=== PATIENT | female | born 1970 | race Caucasian/White ===

== ENCOUNTER 2017-04-15 05:18 | Emergency (ER) | payer OTHER ==
--- NOTE | 2017-04-15 06:33 | DIAGNOSTIC IMAGING REPORT ---
PROCEDURE: CT ABDOMEN/PELVIS W/O CONTRAST INDICATION: FLANK PAIN TECHNIQUE: Noncontrast axial images with sagittal and coronal reformations. COMPARISON: None. FINDINGS: ABDOMEN: There is mild to moderate left hydronephrosis and hydroureter secondary to a 3 mm calculus located at the ureteral vesicle junction. There is a 0.5 mm nonobstructing calculus in the lower pole left kidney. Right kidney and ureter are normal. There is a 4.5 cm low density area in the lateral right lobe of the liver. Liver is otherwise normal. Cholecystectomy. Spleen, pancreas, and aorta are normal. Bowel pattern is normal, including appendix. Mild to moderate dextroscoliosis of the thoracolumbar spine with moderate degenerative changes. PELVIS: Right ovary is enlarged secondary to at 6.3 cm cyst. Left ovary is prominent secondary to a 3.3 cm cyst. Uterus is normal. No evidence of free fluid. IMPRESSION: 1. Mild to moderate left hydronephrosis secondary to a 3 mm calculus located at the ureteral vesicle junction. 2. There is a 0.5 mm nonobstructing calculus in the lower pole left kidney. 3. There is a 4.5 cm low density area in the right lateral liver. Findings suggests a benign hemangioma. Ultrasound is recommended to further evaluate ( after the patient acute illness). 4. There are bilateral ovarian cysts (right 6.3 cm, left 3.3 cm). While there is nothing to suggest soft tissue component, follow-up pelvic ultrasound (4 weeks) is recommended to confirm resolution). 5. Status post cholecystectomy. 6. Mild to moderate dextroscoliosis of the thoracolumbar spine with moderate degenerative changes. 7. discussed with Dr. Oconnell. All CT scans at this facility use dose modulation, iterative reconstruction, and/or weight-based dosing when appropriate to reduce radiation dose to as low as reasonably achievable.
--- NOTE | 2017-04-15 06:37 | ED ORDER SUMMARY ---
..... Patient: PERI SOTO OrderSheet [facility] VisitID: [id number] [address] [place] [address] 46y, F Registration Date/Time: 04/15/2017 ORDER SHEET Weight: 77.5 kg (stated) Allergies: No Known Drug Allergy GENERAL ORDERS: Amylase Urgent (05:38 04/15/2017 PHutchinson DO) (5:40 CBradburn R.N.) Lipase Urgent (05:04/15/2017 PHchinson DO) (5:40 CBradburn R.N.) Ethyl Alcohol Urgent (05:04/15/2017 PHutchinson DO) (5:40 CBradburn R.N.) Lactate, Serum Urgent (05:04/15/2017 PH DO) (5:40 CBradburn R.N.) PT with INR Urgent (05:04/15/2017 PHchinson DO) (5:41 CBradburn R.N.) UA-Culture if indicated Urgent (05:38 04/15/2017 PHson DO) (Ack 5:56 RKaruga) (6:29 CBradburn R.N.) Cardiac Panel Stat (05:38 04/15/2017 PHson DO) (5:41 CBradburn R.N.) BNP Urgent (05:04/15/2017 PHchinson DO) (5:41 CBradburn R.N.) NPO (05:38 04/15/2017 PHchinson DO) (5:39 HSoule) CT Abd/Pel wo Cont Urgent (05:46 04/15/2017 PHchinson DO) (5:53 CBradburn R.N.) MEDICATION ORDERS: Potassium Chloride PO 40 meq (NOW) (06:32 04/15/2017 PHchinson DO) (6:42 CBradburn R.N.) IV FLUIDS: IV NS : initial bolus 500 mL (1000 mL/hr), then 250 mL/hr for X2 (NOW) (05:37 04/15/2017 PHchinson DO) (Ack 5:39 HSoule) (5:45 HSoule) Zofran IV 4 mg (NOW) (05:37 [facility] (Ack 5:39 HSoule) (5:45 HSoule) Dilaudid IV 1 mg (may repeat to total of 2 mg IV in 0.5 mg incriments) (05:46 [facility]15/2017 [facility] (5:50 Steve Ruth) ORDER SHEET NOTES: [Electronically signed by Amrita Hoover R.N. (07:20 04/15/2017)] [Electronically signed by Duy Oconnell DO (11:34 04/16/2017)] [Electronically locked/signed by Amrita Hoover R.N. (07:20 04/15/2017)]
--- NOTE | 2017-04-15 06:37 | ED CLINICAL REPORT ---
Clinical Report - Physicians/Mid Levels [facility] [address] [place] [address] 04/15/2017 5:32 Patient: PERI SOTO Time Seen: 05:35. Arrived- By ambulance. Historian- patient and EMS personnel. HISTORY OF PRESENT ILLNESS Chief Complaint: ABDOMINAL PAIN and FLANK PAIN. At its maximum, severity described as severe. When seen in the E.D., severity described as severe. Modifying factors- (took a bath which did not help the pain). Not worsened by anything. Not relieved by anything. This started today about 1 1/2 hour ago and is still present. It was gradual in onset and has been constant. It is described as "pain" and sharp and it is described as located in the left abdomen and left lower quadrant and the left flank and radiating to the right upper quadrant of the abdomen. The patient has had nausea. No vomiting or diarrhea. Similar symptoms previously: None. Recent medical care: The patient was seen recently by a health care provider. REVIEW OF SYSTEMS No constipation, black stools, hematemesis, difficulty with urination or pain with urination. No urinary frequency, bloody stools, fever, headache or sore throat. No chest pain, difficulty breathing or cough. Denies current . The patient has had back pain. All systems otherwise negative, except as recorded above. PAST HISTORY Primary physician ([facility]) Chronic pelvic pain - scheduled for hysterectomy (at [facility]) . Ovarian cyst. Surgeries: Cholecystectomy. SOCIAL HISTORY Never smoker. No alcohol use or drug use. ADDITIONAL NOTES The nursing notes have been reviewed. PHYSICAL EXAM Vital Signs: 04/15/2017 05:35 BP: 137/96. HR: 70. RR: 18. O2 saturation: 100%. Temp: 97.4 F. Pain level now: 10/10. Appearance: Alert. Oriented X3. Patient in severe distress. Eyes: Eyes normal inspection. No scleral icterus or pale conjunctivae. ENT: Pharynx normal. No pharyngeal erythema or tonsillar exudate. The mucous membranes are not dry. Neck: Normal inspection. Neck supple. CVS: Normal heart rate and rhythm. Heart sounds normal. Pulses normal. Respiratory: No respiratory distress. Breath sounds normal. Abdomen: Soft and nontender. No mass. Back: Normal inspection. No CVA tenderness. Skin: Skin warm and dry. Normal skin color. Normal skin turgor. Extremities: Extremities exhibit normal ROM. No lower extremity edema. Neuro: Oriented X 3. LABS, X-RAYS, AND EKG Laboratory Tests: UA-Culture if indicated: (ANGEL: 04/15/2017 06:27) ( [facility] 04/15/2017 06:54) Final results Test Result Flag Units (Reference) URINE COLOR YELLOW URINE APPEARANCE CLEAR URINE GLUCOSE NEGATIVE (NEGATIVE) URINE BILIRUBIN NEGATIVE (NEGATIVE) URINE KETONE NEGATIVE (NEGATIVE) URINE SPECIFIC GRAVITY >= 1.030 (1.010-1.030) URINE PH 6.0 (5.0-8.0) URINE PROTEIN NEGATIVE (NEGATIVE) URINE UROBILINOGEN 0.2 EU/dL (0.2-1.0) URINE NITRITE NEGATIVE (NEGATIVE) URINE BLOOD 3+ (NEGATIVE) URINE LEUK ESTERASE NEGATIVE (NEGATIVE) URINE RBC 5-10 rbc/hpf (0-1) URINE WBC 0-1 wbc/hpf (0-1) URINE EPITHELIAL CELLS 1-3 EPI/hpf (0-5) URINE BACTERIA NONE SEEN (NONE SEEN) URINE COMMENT CULT NOT INDICATED URINE CULTURES ARE SET-UP BASED ON THE FOLLOWING CRITERIA:POSITIVE NITRITEPOSITIVE LEUKOCYTE ESTERASEGREATER THAN 10 WHITE BLOOD CELLSMODERATE (2+) OR GREATER BACTERIA CBC w Diff: (ANGEL: 04/15/2017 05:50) ( [facility] 04/15/2017 05:54) Final results Test Result Flag Units (Reference) WHITE BLOOD COUNT 9.8 K/uL (4.5-11.5) RED BLOOD COUNT 4.23 M/uL (4.00-5.20) HEMOGLOBIN 11.9 L gm/dL (12.0-16.0) HEMATOCRIT 36.3 % (36.0-46.0) MEAN CELL VOLUME 86 fL (80-100) MEAN CORPUSCULAR HGB 28 pg (26-34) MEAN CORPUSCULAR HGB CONC 33 g/dL (31-37) RED CELL DISTRIBUTION WIDTH 14.0 % (11.6-14.8) PLATELET COUNT 366 K/uL (150-400) LYMPH % 32.3 % (25-40) MONO % 2.8 L % (3-14) GRANULOCYTE % 64.9 (53-90) PT with INR: (ANGEL: 04/15/2017 05:50) ( [facility] 04/15/2017 05:55) Final results Test Result Flag Units (Reference) INR 0.9 (0.8-1.2) Low Intensity Therapy: INR 1.5-2.0 PT range 18.5-23.1Mod.Intensity Therapy: INR 2.0-3.0 PT range 23.1-31.5High Intensity Therapy: INR 2.5-3.5 PT range 27.4-35.5High Intensity Therapy 2: INR 3.0-4.0 PT range 31.5-39.3 BNP: (ANGEL: 04/15/2017 05:50) ( [facility] 04/15/2017 06:01) Final results Test Result Flag Units (Reference) B-TYPE NATRIURETIC PEPTIDE < 5.0 L pg/ml (5-100) Lactate, Serum: (ANGEL: 04/15/2017 06:20) ( [facility] 04/15/2017 07:03) Final results Test Result Flag Units (Reference) LACTIC ACID 1.6 mmol/L (0.4-2.0) Lipase: (ANGEL: 04/15/2017 05:50) ( [facility] 04/15/2017 05:58) Final results Test Result Flag Units (Reference) LIPASE 107 U/L (73-393) AMYLASE 32 U/L (25-115) ETHYL ALCOHOL <3 L mg/dL (3-10) CHEM 13 PANEL: (ANGEL: 04/15/2017 05:50) ( [facility] 04/15/2017 06:27) Final results Test Result Flag Units (Reference) GLUCOSE 157 H mg/dL (70-110) BUN 16 mg/dL (7-18) CREATININE 0.8 mg/dL (0.6-1.3) Estimated GFR >60 mL/min Estimated GFR- >60 mL/min Note: Persistent reduction over 3 months in eGFR<60 mL/min/1.73 m2 defines CKD. Patients with eGFR values>=60 mL/min/1.73 m2 may also have CKD if evidence ofpersistent proteinuria. Additional information may be foundat www.kidney.org. SODIUM 139 mmol/L (136-145) POTASSIUM 2.7 *L mmol/L (3.5-5.1) CRITICAL RESULTS CALLEDCalled to [place] 04/15/17 0627Were 2 patient identifiers used? YWas the result read back? Y CHLORIDE 103 mmol/L (98-107) CARBON DIOXIDE 26 mmol/L (21-32) CALCIUM 8.6 mg/dL (8.5-10.1) TOTAL PROTEIN 7.7 g/dL (6.4-8.2) ALBUMIN 3.7 g/dL (3.3-5.0) BILIRUBIN, TOTAL 0.3 mg/dL (0.0-1.0) ALKALINE PHOSPHATASE 75 U/L (46-116) AST (SGOT) 13 L U/L (15-37) ALT (SGPT) 20 U/L (12-78) MAGNESIUM 1.7 L mg/dL (1.8-2.4) CPK 54 U/L (24-260) TROPONIN I <0.05 ng/mL (0.00-1.5) TROPONIN REFERENCE RANGE:<0.1 NEGATIVE0.1-1.5 INDETERMINANT>1.5 POSITIVE . Pulse Oximetry: 04/15/2017 05:35 O2 saturation: 100%. (FIO2 - room air). Interpretation: normal. PROGRESS AND PROCEDURES Course of Care: Normal Saline 1 liter IVPB given. Zofran 4 mg IVP given. Dilaudid 1 mg + 0.5 mg IVP given. 07:04 04/15/17. Patient is stable. Physical exam findings are improved. Symptoms much better. Patient/family counseled. Old ED records reviewed. Disposition: Discharged. Condition: stable and improved. CLINICAL IMPRESSION Ureterolithiasis (single stone) in the left ureter with renal colic and hydronephrosis. No urinary tract infection. Multiple right and left ovarian cysts. Hypokalemia Possible liver hemangioma vs other problem- requires confirmatory ultrasound in the next several weeks. INSTRUCTIONS Drink plenty of fluids. No alcohol until released. Warnings: Further evaluation is necessary in order to obtain test results and conduct further tests (You will need to have a lesion on your liver checked by ultrasound (or other method) - to be arranged by your doctor. You will need the ovarian cystic lesions evaluated - by pathology or other imaging if they are not removed during your upcoming hysterectomy). It is very important to follow up with a physician. SEDATIVE MEDICATION: You were given sedative medication during your visit. Do not drive or operate dangerous machinery. CONTROLLED SUBSTANCE WARNINGS. GENERAL WARNINGS: Return or contact your physician immediately if your condition worsens or changes unexpectedly, if not improving as expected, or if other problems arise. Prescription Medications: Hydrocodone/APAP 5mg / 325mg: take 1-2 orally every 8 hours as needed for pain. Dispense ten (10). No refill. Zofran (orally disintegrating tablets) 4 mg: take 1-2 orally every 8 hours as needed for nausea and vomiting. Dispense five (5). No refill. Substitution is permissible. Ibuprofen 600mg tablets: take 1 tablet orally every 8 hours as needed for pain. Dispense thirty (30). No refills. Potassium Chloride 20 mEq: take 1 orally every 12 hours - Dispense ten (10) No refills. Follow-up: Follow up with your doctor tomorrow. (Electronically signed by Duy Oconnell DO 04/16/2017 11:34)
--- NOTE | 2017-04-15 06:37 | ED CLINICAL REPORT ---
Clinical Report - Physicians/Mid Levels [facility] [address] [place] [address] 04/15/2017 5:32 Patient: PERI SOTO Time Seen: 05:35. Arrived- By ambulance. Historian- patient and EMS personnel. HISTORY OF PRESENT ILLNESS Chief Complaint: ABDOMINAL PAIN and FLANK PAIN. At its maximum, severity described as severe. When seen in the E.D., severity described as severe. Modifying factors- (took a bath which did not help the pain). Not worsened by anything. Not relieved by anything. This started today about 1 1/2 hour ago and is still present. It was gradual in onset and has been constant. It is described as "pain" and sharp and it is described as located in the left abdomen and left lower quadrant and the left flank and radiating to the right upper quadrant of the abdomen. The patient has had nausea. No vomiting or diarrhea. Similar symptoms previously: None. Recent medical care: The patient was seen recently by a health care provider. REVIEW OF SYSTEMS No constipation, black stools, hematemesis, difficulty with urination or pain with urination. No urinary frequency, bloody stools, fever, headache or sore throat. No chest pain, difficulty breathing or cough. Denies current . The patient has had back pain. All systems otherwise negative, except as recorded above. PAST HISTORY Primary physician ([facility]) Chronic pelvic pain - scheduled for hysterectomy (at [facility]) . Ovarian cyst. Surgeries: Cholecystectomy. SOCIAL HISTORY Never smoker. No alcohol use or drug use. ADDITIONAL NOTES The nursing notes have been reviewed. PHYSICAL EXAM Vital Signs: 04/15/2017 05:35 BP: 137/96. HR: 70. RR: 18. O2 saturation: 100%. Temp: 97.4 F. Pain level now: 10/10. Appearance: Alert. Oriented X3. Patient in severe distress. Eyes: Eyes normal inspection. No scleral icterus or pale conjunctivae. ENT: Pharynx normal. No pharyngeal erythema or tonsillar exudate. The mucous membranes are not dry. Neck: Normal inspection. Neck supple. CVS: Normal heart rate and rhythm. Heart sounds normal. Pulses normal. Respiratory: No respiratory distress. Breath sounds normal. Abdomen: Soft and nontender. No mass. Back: Normal inspection. No CVA tenderness. Skin: Skin warm and dry. Normal skin color. Normal skin turgor. Extremities: Extremities exhibit normal ROM. No lower extremity edema. Neuro: Oriented X 3. LABS, X-RAYS, AND EKG Laboratory Tests: UA-Culture if indicated: (ANGEL: 04/15/2017 06:27) ( [facility] 04/15/2017 06:54) Final results Test Result Flag Units (Reference) URINE COLOR YELLOW URINE APPEARANCE CLEAR URINE GLUCOSE NEGATIVE (NEGATIVE) URINE BILIRUBIN NEGATIVE (NEGATIVE) URINE KETONE NEGATIVE (NEGATIVE) URINE SPECIFIC GRAVITY >= 1.030 (1.010-1.030) URINE PH 6.0 (5.0-8.0) URINE PROTEIN NEGATIVE (NEGATIVE) URINE UROBILINOGEN 0.2 EU/dL (0.2-1.0) URINE NITRITE NEGATIVE (NEGATIVE) URINE BLOOD 3+ (NEGATIVE) URINE LEUK ESTERASE NEGATIVE (NEGATIVE) URINE RBC 5-10 rbc/hpf (0-1) URINE WBC 0-1 wbc/hpf (0-1) URINE EPITHELIAL CELLS 1-3 EPI/hpf (0-5) URINE BACTERIA NONE SEEN (NONE SEEN) URINE COMMENT CULT NOT INDICATED URINE CULTURES ARE SET-UP BASED ON THE FOLLOWING CRITERIA:POSITIVE NITRITEPOSITIVE LEUKOCYTE ESTERASEGREATER THAN 10 WHITE BLOOD CELLSMODERATE (2+) OR GREATER BACTERIA CBC w Diff: (ANGEL: 04/15/2017 05:50) ( [facility] 04/15/2017 05:54) Final results Test Result Flag Units (Reference) WHITE BLOOD COUNT 9.8 K/uL (4.5-11.5) RED BLOOD COUNT 4.23 M/uL (4.00-5.20) HEMOGLOBIN 11.9 L gm/dL (12.0-16.0) HEMATOCRIT 36.3 % (36.0-46.0) MEAN CELL VOLUME 86 fL (80-100) MEAN CORPUSCULAR HGB 28 pg (26-34) MEAN CORPUSCULAR HGB CONC 33 g/dL (31-37) RED CELL DISTRIBUTION WIDTH 14.0 % (11.6-14.8) PLATELET COUNT 366 K/uL (150-400) LYMPH % 32.3 % (25-40) MONO % 2.8 L % (3-14) GRANULOCYTE % 64.9 (53-90) PT with INR: (ANGEL: 04/15/2017 05:50) ( [facility] 04/15/2017 05:55) Final results Test Result Flag Units (Reference) INR 0.9 (0.8-1.2) Low Intensity Therapy: INR 1.5-2.0 PT range 18.5-23.1Mod.Intensity Therapy: INR 2.0-3.0 PT range 23.1-31.5High Intensity Therapy: INR 2.5-3.5 PT range 27.4-35.5High Intensity Therapy 2: INR 3.0-4.0 PT range 31.5-39.3 BNP: (ANGEL: 04/15/2017 05:50) ( [facility] 04/15/2017 06:01) Final results Test Result Flag Units (Reference) B-TYPE NATRIURETIC PEPTIDE < 5.0 L pg/ml (5-100) Lactate, Serum: (ANGEL: 04/15/2017 06:20) ( [facility] 04/15/2017 07:03) Final results Test Result Flag Units (Reference) LACTIC ACID 1.6 mmol/L (0.4-2.0) Lipase: (ANGEL: 04/15/2017 05:50) ( [facility] 04/15/2017 05:58) Final results Test Result Flag Units (Reference) LIPASE 107 U/L (73-393) AMYLASE 32 U/L (25-115) ETHYL ALCOHOL <3 L mg/dL (3-10) CHEM 13 PANEL: (ANGEL: 04/15/2017 05:50) ( [facility] 04/15/2017 06:27) Final results Test Result Flag Units (Reference) GLUCOSE 157 H mg/dL (70-110) BUN 16 mg/dL (7-18) CREATININE 0.8 mg/dL (0.6-1.3) Estimated GFR >60 mL/min Estimated GFR- >60 mL/min Note: Persistent reduction over 3 months in eGFR<60 mL/min/1.73 m2 defines CKD. Patients with eGFR values>=60 mL/min/1.73 m2 may also have CKD if evidence ofpersistent proteinuria. Additional information may be foundat www.kidney.org. SODIUM 139 mmol/L (136-145) POTASSIUM 2.7 *L mmol/L (3.5-5.1) CRITICAL RESULTS CALLEDCalled to [place] 04/15/17 0627Were 2 patient identifiers used? YWas the result read back? Y CHLORIDE 103 mmol/L (98-107) CARBON DIOXIDE 26 mmol/L (21-32) CALCIUM 8.6 mg/dL (8.5-10.1) TOTAL PROTEIN 7.7 g/dL (6.4-8.2) ALBUMIN 3.7 g/dL (3.3-5.0) BILIRUBIN, TOTAL 0.3 mg/dL (0.0-1.0) ALKALINE PHOSPHATASE 75 U/L (46-116) AST (SGOT) 13 L U/L (15-37) ALT (SGPT) 20 U/L (12-78) MAGNESIUM 1.7 L mg/dL (1.8-2.4) CPK 54 U/L (24-260) TROPONIN I <0.05 ng/mL (0.00-1.5) TROPONIN REFERENCE RANGE:<0.1 NEGATIVE0.1-1.5 INDETERMINANT>1.5 POSITIVE . Pulse Oximetry: 04/15/2017 05:35 O2 saturation: 100%. (FIO2 - room air). Interpretation: normal. PROGRESS AND PROCEDURES Course of Care: Normal Saline 1 liter IVPB given. Zofran 4 mg IVP given. Dilaudid 1 mg + 0.5 mg IVP given. 07:04 04/15/17. Patient is stable. Physical exam findings are improved. Symptoms much better. Patient/family counseled. Old ED records reviewed. Disposition: Discharged. Condition: stable and improved. CLINICAL IMPRESSION Ureterolithiasis (single stone) in the left ureter with renal colic and hydronephrosis. No urinary tract infection. Multiple right and left ovarian cysts. Hypokalemia Possible liver hemangioma vs other problem- requires confirmatory ultrasound in the next several weeks. INSTRUCTIONS Drink plenty of fluids. No alcohol until released. Warnings: Further evaluation is necessary in order to obtain test results and conduct further tests (You will need to have a lesion on your liver checked by ultrasound (or other method) - to be arranged by your doctor. You will need the ovarian cystic lesions evaluated - by pathology or other imaging if they are not removed during your upcoming hysterectomy). It is very important to follow up with a physician. SEDATIVE MEDICATION: You were given sedative medication during your visit. Do not drive or operate dangerous machinery. CONTROLLED SUBSTANCE WARNINGS. GENERAL WARNINGS: Return or contact your physician immediately if your condition worsens or changes unexpectedly, if not improving as expected, or if other problems arise. Prescription Medications: Hydrocodone/APAP 5mg / 325mg: take 1-2 orally every 8 hours as needed for pain. Dispense ten (10). No refill. Zofran (orally disintegrating tablets) 4 mg: take 1-2 orally every 8 hours as needed for nausea and vomiting. Dispense five (5). No refill. Substitution is permissible. Ibuprofen 600mg tablets: take 1 tablet orally every 8 hours as needed for pain. Dispense thirty (30). No refills. Potassium Chloride 20 mEq: take 1 orally every 12 hours - Dispense ten (10) No refills. Follow-up: Follow up with your doctor tomorrow. (Electronically signed by Duy Oconnell DO 04/16/2017 11:34)
--- NOTE | 2017-04-15 06:37 | ED NURSING NOTES ---
Clinical Report - Nurses [facility] [address] [place] [address] 04/15/2017 5:32 Patient: PERI SOTO TRIAGE Triage time 05:32. Acuity: LEVEL 3. Chief Complaint: ABDOMINAL PAIN. --05:39 Amrita Hoover R.N. 05:35 04/15/17. BP: 137/96 taken on the left arm, while lying. HR: 70 (regular and normal rate). RR: 18 (regular and unlabored). O2 saturation: 100% on room air. Temp: 97.4 F (oral). Pain level now: 08/07. --05:39 Amrita Hoover R.N. Weight: 77.5 kg stated. Height/Length: 67 inches Per Patient. BMI: 26.8. --05:37 Amrita Hoover R.N. Medications None. --05:37 Amrita Hoover R.N. Allergies No Known Drug Allergy. --05:37 Amrita Hoover R.N. History Arrived by EMS. Historian: patient. Unaccompanied. Primary physician ([facility]). This started just prior to arrival. Onset. (1.5 hours). ( c/o LLQ abd pain started suddenly severe, pt scheduled to have hysterectomy in 2 days at [facility]). PAST MEDICAL HX: Immunizations: up-to-date. Last normal menstrual period- beginning of the month. SOCIAL HX: Never smoker. No alcohol use or drug use. No infectious disease exposure. No known contact with a sick individual. ABUSE ASSESSMENT: No report of abuse. SELF HARM ASSESSMENT: A self harm assessment was performed. The patient answered "no" to the question "Have you recently felt down, depressed, or hopeless?", "Have you noticed less interest or pleasure in doing things?", "Do you have thoughts of harming or killing yourself?", "Are you here because you tried to hurt yourself?", "Have you ever tried to hurt yourself before today?", "Have you recently had thoughts about harming or killing others?" and "Do you have any dangerous items in your possession?". FALL RISK ASSESSMENT: Fall risk assessment completed. No fall risk identified. NUTRITIONAL RISK ASSESSMENT: The nutritional risk assessment revealed no deficiencies. FUNCTIONAL ASSESSMENT: Functional assessment: no impairments noted. LEARNING NEEDS ASSESSMENT: The learning needs assessment revealed no barriers. SKIN INTEGRITY ASSESSMENT: Skin integrity risk assessment completed. No skin integrity risk identified. --05:39 Amrita Hoover R.N. PROBLEMS: Ovarian Cyst. --05:37 Armita Hoover R.N. ADDITIONAL SURGERIES: Cholecystectomy. --05:37 Amrita Hoover R.N. Interventions ID band on patient. --05:39 Amrita Hoover R.N. PHYSICAL ASSESSMENT To room via stretcher. GENERAL / NEURO / PSYCH: Alert. Oriented X 4. Appears in pain and anxious. HEENT: Mucous membranes are pink. RESPIRATORY: Respirations not labored. Breath sounds within normal limits. CVS: Normal sinus rhythm noted. Capillary refill less than 2 seconds. GI / : Abdomen soft. Abdominal tenderness in the left lower quadrant. Guarding present in the left lower quadrant. Bowel sounds within normal limits. No abdominal distention or mass present in the abdominal region. No nausea noted. No emesis noted. No urethral discharge or vaginal discharge. SKIN: Skin is warm and dry. --05:40 Amrita Hoover R.N. NURSING PROGRESS NOTES Patient gowned. Two patient identifiers checked. Call light placed in reach. Side rails up x 2. Bed placed in lowest position. Brakes of bed on. Patient ready for evaluation- chart flagged. --05:40 Amrita Hoover R.N. 05:45 04/15/2017 Site #1 started via IV in the right antecubital space with an 20g angiocath, with aseptic technique and good blood return; one attempt. Blood drawn: rainbow set. Labeled in the presence of the patient and sent to the lab. Saline lock flushed with 10 mL saline. --05:45 Michela Sheikh 05:45 04/15/2017 Started bag #1 1000 mL IV Fluids IV NS (Saline); at 1000 mL/hr over 30 minute(s) via site #1 via IV pump. Allergies verified and confirmed 5 rights. IV patency established. IV site checked: no pain, redness, or swelling. IV flushed thoroughly pre- and post-medication administration. --05:45 Michela Sheikh 05:45 04/15/2017 Zofran (Ondansetron HCl) IVP 4 mg given over 1 minute(s) via site #1. Allergies verified and confirmed 5 rights. IV patency established. IV site checked: no pain, redness, or swelling. IV flushed thoroughly pre- and post-medication administration. IVP given by RN. --05:45 Aguilar, Michela 05:50 04/15/2017 Dilaudid (HYDROmorphone HCl PF) IVP 1 mg given over 2 minute(s) via site #1. Allergies verified, confirmed 5 rights and sedative warning given to the patient. IV patency established. IV site checked: no pain, redness, or swelling. IV flushed thoroughly pre- and post-medication administration. IVP given by RN. --05:50 Amrita Hoover R.N. Patient transported to CT by stretcher with tech. (05:53). --05:53 Amrita Hoover R.N. Patient returned from CT by stretcher with tech. (06:02). --06:02 Amrita Hoover R.N. 06:12 04/15/2017 Dilaudid (HYDROmorphone HCl PF) IVP 0.5 mg given over 2 minute(s) via site #1. Allergies verified, confirmed 5 rights and sedative warning given to the patient. IV patency established. IV site checked: no pain, redness, or swelling. IV flushed thoroughly pre- and post-medication administration. IVP given by RN. --06:12 Amrita Hoover R.N. 06:05 04/15/17. BP: 148/82 taken on the left arm, while lying. HR: 87 (regular and normal rate). RR: 18 (regular and unlabored). O2 saturation: 98% on room air. Temp: deferred. Pain level now: 5/10. --06:13 Amrita Hoover R.N. Overall patient status is improved- she states feels better. GI / : Bowel sounds within normal limits. SKIN: Skin is warm and dry. Skin color within normal limits. --06:13 Amrita Hoover R.N. GI / : The patient reports abdominal pain located in the LLQ is still present but improving and currently moderate in severity, constant and described as aching. --06:13 Amrita Hoover R.N. Critical value relayed to ED by Lab 06:27. Critical value received by Michela DAUGHERTY. K: 2.7. Critical value read back. Verified lab result. Provider notifed of critical value (Anish). --06:27 Amrita Hoover R.N. 06:08 04/15/2017 Dilaudid IVP Response: pain is improving. Symptoms have improved the patient feels better. (06/07). --06:34 Amrita Hoover R.N. 06:33 04/15/2017 Dilaudid IVP Response: pain is worsening. Symptoms have gotten worse. The patient feels worse. (08/07). --06:35 Amrita Hoover R.N. 06:34 04/15/2017 Dilaudid (HYDROmorphone HCl PF) IVP 0.5 mg given over 2 minute(s) via site #1. Allergies verified, confirmed 5 rights and sedative warning given to the patient. IV patency established. IV site checked: no pain, redness, or swelling. IV flushed thoroughly pre- and post-medication administration. IVP given by RN. --06:34 Amrita Hoover R.N. 06:33. Patient ID band checked for patient name and birthdate: patient confirmed. Instructions provided to collect clean catch urine and patient verbalized understanding. Clean catch urine collected with return of yellow-colored clear urine; sample sent to lab for urinalysis and culture. Specimen labeled in the presence of the patient. ( pt ambulating to BR reports pain worsening now, will medicate again per MD orders. Urine collected and sent to lab). GI / : The patient reports abdominal pain located in the LLQ is still present and worsening and currently severe and constant. --06:37 Amrita Hoover R.N. Call light placed in reach. --06:37 Amrita Hoover R.N. 06:15 04/15/2017 Started bag #1 1000 mL IV Fluids IV NS (Saline); at 250 mL/hr over 2 hour(s) via site #1 via IV pump. Allergies verified and confirmed 5 rights. IV patency established. IV site checked: no pain, redness, or swelling. IV flushed thoroughly pre- and post-medication administration. --06:38 Amrita Hoover R.N. 06:15 04/15/2017 IV Fluids IV NS Discontinued: completed. Total amount infused: 500 mL. IV patency established. IV site checked: no pain, redness, or swelling. IV flushed thoroughly. --06:37 Amrita Hoover R.N. 06:42 04/15/2017 Potassium Chloride (Potassium Chloride ER) PO Tablets 40 meq given. Allergies verified and confirmed 5 rights. --06:42 Amrita Hoover R.N. DISPOSITION / DISCHARGE 07:19 04/15/2017 Site #1 removed upon discharge. Catheter intact. Manual pressure and bandage applied. --07:19 Amrita Hoover R.N. 07:19 04/15/2017 IV Fluids IV NS Discontinued: STOPPED upon discharge. Total amount infused: 750 mL. IV patency established. IV site checked: no pain, redness, or swelling. IV flushed thoroughly. --07:19 Amrita Hoover R.N. Departure time: 719. Condition at departure: improved and stable. No learning barriers present. Discharge instructions provided and reviewed with the patient. Reviewed medication(s) side effects, precautions, dosing and course information. Prescription(s) given to the patient. Patient verbalized understanding. Written instructions provided in Maltese. The patient was discharged home and accompanied by spouse. She left the Emergency Department ambulatory and via private vehicle. Spouse driving. --07:20 Amrita Hoover R.N. Locked/Released at 04/15/2017 7:20 by Amrita Hoover R.N.
--- NOTE | 2017-04-15 06:37 | ED ORDER SUMMARY ---
..... Patient: PERI SOTO OrderSheet [facility] VisitID: [id number] [address] [place] [address] 46y, F Registration Date/Time: 04/15/2017 ORDER SHEET Weight: 77.5 kg (stated) Allergies: No Known Drug Allergy GENERAL ORDERS: Amylase Urgent (05:38 04/15/2017 PHutchinson DO) (5:40 CBradburn R.N.) Lipase Urgent (05:04/15/2017 PHchinson DO) (5:40 CBradburn R.N.) Ethyl Alcohol Urgent (05:04/15/2017 PHutchinson DO) (5:40 CBradburn R.N.) Lactate, Serum Urgent (05:04/15/2017 PH DO) (5:40 CBradburn R.N.) PT with INR Urgent (05:04/15/2017 PHchinson DO) (5:41 CBradburn R.N.) UA-Culture if indicated Urgent (05:38 04/15/2017 PHson DO) (Ack 5:56 RKaruga) (6:29 CBradburn R.N.) Cardiac Panel Stat (05:38 04/15/2017 PHson DO) (5:41 CBradburn R.N.) BNP Urgent (05:04/15/2017 PHchinson DO) (5:41 CBradburn R.N.) NPO (05:38 04/15/2017 PHchinson DO) (5:39 HSoule) CT Abd/Pel wo Cont Urgent (05:46 04/15/2017 PHchinson DO) (5:53 CBradburn R.N.) MEDICATION ORDERS: Potassium Chloride PO 40 meq (NOW) (06:32 04/15/2017 PHchinson DO) (6:42 CBradburn R.N.) IV FLUIDS: IV NS : initial bolus 500 mL (1000 mL/hr), then 250 mL/hr for X2 (NOW) (05:37 04/15/2017 PHchinson DO) (Ack 5:39 HSoule) (5:45 HSoule) Zofran IV 4 mg (NOW) (05:37 [facility]2017 [facility] (Ack 5:39 HSoule) (5:45 HSoule) Dilaudid IV 1 mg (may repeat to total of 2 mg IV in 0.5 mg incriments) (05:46 [facility]/15/2017 [facility] (5:50 Steve Ruth) ORDER SHEET NOTES: [Electronically signed by Amrita Hoover R.N. (07:20 04/15/2017)] [Electronically signed by Duy Oconnell DO (11:34 04/16/2017)] [Electronically locked/signed by Amrita Hoover R.N. (07:20 04/15/2017)]
--- NOTE | 2017-04-16 11:35 | ED MAR SUMMARY ---
..... Medication Administration Record [facility] [address] [place] [address] Patient: PERI SOTO Visit ID: [id number] 46y, F Weight: 77.5 kg Height/Length: 67 in BMI: 26.8 ALLERGIES: No Known Drug Allergy Given 05:45 04/15/2017 Michela Sheikh, Medication Administered: ZOFRAN [IVP] (ONDANSETRON HCL), Dose: 4 mg IVP over 1 minute(s), Site: #1 right AC. Medication Ordered: Zofran IV 4 mg (NOW). Start 05:45 04/15/2017 Michela Sheikh,, Stop 06:15 04/15/2017 Amrita Hoover R.N. Medication Administered: IV NS (SALINE), Dose: IV Fluids over 30 minute(s), Rate: 1000 mL/hr, Dispensed: 1000 mL bag, Site: #1 right AC. Medication Ordered: IV NS : initial bolus 500 mL (1000 mL/hr), then 250 mL/hr for X2 (NOW). Given 05:50 04/15/2017 Amrita Hoover R.N. Medication Administered: DILAUDID [IVP] (HYDROMORPHONE HCL PF), Dose: 1 mg IVP over 2 minute(s), Site: #1 right AC. Medication Ordered: Dilaudid IV 1 mg (may repeat to total of 2 mg IV in 0.5 mg incriments). Given 06:12 04/15/2017 Amrita Hoover R.N. Medication Administered: DILAUDID [IVP] (HYDROMORPHONE HCL PF), Dose: 0.5 mg IVP over 2 minute(s), Site: #1 right AC. Medication Ordered: Dilaudid IV 1 mg (may repeat to total of 2 mg IV in 0.5 mg incriments). Start 06:15 04/15/2017 Amrita Hoover R.N., Stop 07:19 04/15/2017 Amrita Hoover R.N. Medication Administered: IV NS (SALINE), Dose: IV Fluids over 2 hour(s), Rate: 250 mL/hr, Dispensed: 1000 mL bag, Site: #1 right AC. Medication Ordered: IV NS : initial bolus 500 mL (1000 mL/hr), then 250 mL/hr for X2 (NOW). Given 06:34 04/15/2017 Amrita Hoover R.N. Medication Administered: DILAUDID [IVP] (HYDROMORPHONE HCL PF), Dose: 0.5 mg IVP over 2 minute(s), Site: #1 right AC. Medication Ordered: Dilaudid IV 1 mg (may repeat to total of 2 mg IV in 0.5 mg incriments). Given 06:42 04/15/2017 Amirta Hoover R.N. Medication Administered: POTASSIUM CHLORIDE [PO] (POTASSIUM CHLORIDE ER), Dose: 40 meq Tablets PO. Medication Ordered: Potassium Chloride PO 40 meq (NOW).
--- NOTE | 2017-04-16 11:35 | ED MED RECONCILIATION SUMMARY ---
Patient: PERI SOTO Medication Reconciliation Report [facility] VisitID: [id number] [address] [place] [address] 46y, F Registration Date/Time: 04/15/2017 Weight: 77.5 kg Height/Length: 67 in. BMI: 26.8 ALLERGIES: No Known Drug Allergy The patient's Home Medications are listed below: NONE. The source(s) of the original Home Medication information: Not obtained. The following Medications were given to the patient in the Emergency Department: IV NS IV Fluids bolus 0, then 1000 mL/hr, administered: 04/15/2017 5:45:00 AM Zofran [IVP] IVP 4 mg, administered: 04/15/2017 5:45:00 AM Dilaudid [IVP] IVP 1 mg, administered: 04/15/2017 5:50:00 AM Dilaudid [IVP] IVP 0.5 mg, administered: 04/15/2017 6:12:00 AM Dilaudid [IVP] IVP 0.5 mg, administered: 04/15/2017 6:34:00 AM IV NS IV Fluids bolus 0, then 250 mL/hr, administered: 04/15/2017 6:15:00 AM Potassium Chloride [PO] PO 40 meq, administered: 04/15/2017 6:42:00 AM The following Medications were prescribed to the patient: Hydrocodone/APAP 5mg / 325mg: take 1-2 orally every 8 hours as needed for pain. Dispense ten (10). No refill. -- Duy Oconnell DO Zofran (orally disintegrating tablets) 4 mg: take 1-2 orally every 8 hours as needed for nausea and vomiting. Dispense five (5). No refill. Substitution is permissible. -- Duy Oconnell DO Ibuprofen 600mg tablets: take 1 tablet orally every 8 hours as needed for pain. Dispense thirty (30). No refills. -- Duy Oconnell DO Potassium Chloride 20 mEq: take 1 orally every 12 hours - Dispense ten (10) No refills. -- Duy Oconnell DO
--- NOTE | 2017-04-16 11:35 | ED MED RECONCILIATION SUMMARY ---
Patient: PERI SOTO Medication Reconciliation Report [facility] VisitID: [id number] [address] [place] [address] 46y, F Registration Date/Time: 04/15/2017 Weight: 77.5 kg Height/Length: 67 in. BMI: 26.8 ALLERGIES: No Known Drug Allergy The patient's Home Medications are listed below: NONE. The source(s) of the original Home Medication information: Not obtained. The following Medications were given to the patient in the Emergency Department: IV NS IV Fluids bolus 0, then 1000 mL/hr, administered: 04/15/2017 5:45:00 AM Zofran [IVP] IVP 4 mg, administered: 04/15/2017 5:45:00 AM Dilaudid [IVP] IVP 1 mg, administered: 04/15/2017 5:50:00 AM Dilaudid [IVP] IVP 0.5 mg, administered: 04/15/2017 6:12:00 AM Dilaudid [IVP] IVP 0.5 mg, administered: 04/15/2017 6:34:00 AM IV NS IV Fluids bolus 0, then 250 mL/hr, administered: 04/15/2017 6:15:00 AM Potassium Chloride [PO] PO 40 meq, administered: 04/15/2017 6:42:00 AM The following Medications were prescribed to the patient: Hydrocodone/APAP 5mg / 325mg: take 1-2 orally every 8 hours as needed for pain. Dispense ten (10). No refill. -- Duy Oconnell DO Zofran (orally disintegrating tablets) 4 mg: take 1-2 orally every 8 hours as needed for nausea and vomiting. Dispense five (5). No refill. Substitution is permissible. -- Duy Oconnell DO Ibuprofen 600mg tablets: take 1 tablet orally every 8 hours as needed for pain. Dispense thirty (30). No refills. -- Duy Oconnell DO Potassium Chloride 20 mEq: take 1 orally every 12 hours - Dispense ten (10) No refills. -- Duy Oconnell DO
--- NOTE | 2017-04-16 11:35 | ED MAR SUMMARY ---
..... Medication Administration Record [facility] [address] [place] [address] Patient: PERI SOTO Visit ID: [id number] 46y, F Weight: 77.5 kg Height/Length: 67 in BMI: 26.8 ALLERGIES: No Known Drug Allergy Given 05:45 04/15/2017 Michela Sheikh, Medication Administered: ZOFRAN [IVP] (ONDANSETRON HCL), Dose: 4 mg IVP over 1 minute(s), Site: #1 right AC. Medication Ordered: Zofran IV 4 mg (NOW). Start 05:45 04/15/2017 Michela Sheikh,, Stop 06:15 04/15/2017 Amrita Hoover R.N. Medication Administered: IV NS (SALINE), Dose: IV Fluids over 30 minute(s), Rate: 1000 mL/hr, Dispensed: 1000 mL bag, Site: #1 right AC. Medication Ordered: IV NS : initial bolus 500 mL (1000 mL/hr), then 250 mL/hr for X2 (NOW). Given 05:50 04/15/2017 Amrita Hoover R.N. Medication Administered: DILAUDID [IVP] (HYDROMORPHONE HCL PF), Dose: 1 mg IVP over 2 minute(s), Site: #1 right AC. Medication Ordered: Dilaudid IV 1 mg (may repeat to total of 2 mg IV in 0.5 mg incriments). Given 06:12 04/15/2017 Amrita Hoover R.N. Medication Administered: DILAUDID [IVP] (HYDROMORPHONE HCL PF), Dose: 0.5 mg IVP over 2 minute(s), Site: #1 right AC. Medication Ordered: Dilaudid IV 1 mg (may repeat to total of 2 mg IV in 0.5 mg incriments). Start 06:15 04/15/2017 Amrita Hoover R.N., Stop 07:19 04/15/2017 Amrita Hoover R.N. Medication Administered: IV NS (SALINE), Dose: IV Fluids over 2 hour(s), Rate: 250 mL/hr, Dispensed: 1000 mL bag, Site: #1 right AC. Medication Ordered: IV NS : initial bolus 500 mL (1000 mL/hr), then 250 mL/hr for X2 (NOW). Given 06:34 04/15/2017 Amrita Hoover R.N. Medication Administered: DILAUDID [IVP] (HYDROMORPHONE HCL PF), Dose: 0.5 mg IVP over 2 minute(s), Site: #1 right AC. Medication Ordered: Dilaudid IV 1 mg (may repeat to total of 2 mg IV in 0.5 mg incriments). Given 06:42 04/15/2017 Amrita Hoover R.N. Medication Administered: POTASSIUM CHLORIDE [PO] (POTASSIUM CHLORIDE ER), Dose: 40 meq Tablets PO. Medication Ordered: Potassium Chloride PO 40 meq (NOW).
--- NOTE | 2017-04-16 11:35 | ED DISCHARGE INSTRUCTIONS ---
Patient: PERI SOTO General Instructions [facility] VisitID: [id number] [place] [address] 46y, F Registration Date/Time: 04/15/2017 Ureterolithiasis (single stone) in the left ureter with renal colic and hydronephrosis. No urinary tract infection. Multiple right and left ovarian cysts. Hypokalemia Possible liver hemangioma vs other problem- requires confirmatory ultrasound in the next several weeks. INSTRUCTIONS Drink plenty of fluids. No alcohol until released. Warnings: Further evaluation is necessary in order to obtain test results and conduct further tests (You will need to have a lesion on your liver checked by ultrasound (or other method) - to be arranged by your doctor. You will need the ovarian cystic lesions evaluated - by pathology or other imaging if they are not removed during your upcoming hysterectomy). It is very important to follow up with a physician. SEDATIVE MEDICATION: You were given sedative medication during your visit. Do not drive or operate dangerous machinery. CONTROLLED SUBSTANCE WARNINGS. GENERAL WARNINGS: Return or contact your physician immediately if your condition worsens or changes unexpectedly, if not improving as expected, or if other problems arise. Prescription Medications: Hydrocodone/APAP 5mg / 325mg: take 1-2 orally every 8 hours as needed for pain. Dispense ten (10). No refill. Zofran (orally disintegrating tablets) 4 mg: take 1-2 orally every 8 hours as needed for nausea and vomiting. Dispense five (5). No refill. Substitution is permissible. Ibuprofen 600mg tablets: take 1 tablet orally every 8 hours as needed for pain. Dispense thirty (30). No refills. Potassium Chloride 20 mEq: take 1 orally every 12 hours - Dispense ten (10) No refills. Follow-up: Follow up with your doctor tomorrow. ADDITIONAL INFORMATION Kidney Stone (W/ Colic) The sharp cramping pain and nausea/vomiting that you have is due to a small stone which has formed in the kidney and is now passing down a narrow tube (ureter) on its way to your bladder. Once it reaches your bladder, the pain will stop. The stone may pass in your urine stream in one piece. [The size may be 1/16" to 1/4" (1-6mm)]. Or, the stone may also break up into sarah fragments which you may not even notice. Once you have had a kidney stone, you are at risk for developing another one in the future. Home Care: Drink plenty of fluids (at least 8 to 10 glasses of water a day). Most stones will pass on their own, but may take from a few hours to a few days. Sometimes the stone is too large to pass by itself and special methods will have to be used to remove the stone. Each time you urinate, do so in a jar. Pour the urine from the jar through the strainer and into the toilet. Continue doing this until 24 hours after your pain stops. By then, if there was a kidney stone, it should pass from your bladder. Some stones dissolve into sand-like particles and pass right through the strainer. In that case, you wont ever see a stone. Save any stone that you find in the strainer and bring it to your doctor for analysis. It may be possible to prevent certain types of stones from forming. Therefore, it is important to know what kind of stone you have. Try to stay as active as possible since this will help the stone pass. Do not stay in bed unless your pain prevents you from getting up. You may notice a red, pink or brown color to your urine. This is normal while passing a kidney stone. Follow Up with your doctor or return to this facility if the pain lasts more than 48 hours. Get Prompt Medical Attention if any of the following occur: Pain that is not controlled by the medicine given Repeated vomiting or unable to keep down fluids Weakness, dizziness or fainting Fever of 100.4F (38C) or higher, or as directed by your healthcare provider Passage of solid red or brown urine (can't see through it) or urine with lots of blood clots Unable to pass urine for 8 hours and increasing bladder pressure Ovarian Cyst The ovary is a small organ located on each side of the uterus. During each menstrual cycle a tiny egg sac forms in the ovary. If the egg is released but does not occur, this sac usually dissolves. Sometimes, the sac may fill with fluid. It then enlarges into a painful cyst. Usually the cyst will rupture or shrink on its own. In either case, the pain gradually goes away over the next 1-3 days. If the cyst does not shrink or rupture, it may cause continued pain. Home Care: Rest in bed and avoid heavy exertion until you are feeling better. Heat to the lower abdomen usually helps (heating pad or hot packs -- a small towel soaked in hot water). You may use acetaminophen (Tylenol) or ibuprofen (Motrin, Advil) to control pain, unless another pain medicine was prescribed. [NOTE: If you have chronic liver or kidney disease or ever had a stomach ulcer or GI bleeding, talk with your doctor before using these medicines.] Follow Up: See your doctor within the next 2-3 days if your pain doesnt improve. Otherwise, follow up with your doctor after your next period or as directed by our staff. Get Prompt Medical Attention if any of the following occur: Pain worsens or fails to respond to the above measures Fever of 100.4F (38C) or higher, or as directed by your healthcare provider Heavy vaginal bleeding (soaking one pad an hour for three hours) You feel weak or dizzy Fainting Passage of a pink or platt tissue with menstrual bleeding Hypokalemia Hypokalemia means a low level of potassium in the blood. This most often occurs in patients who take diuretics (water pills). It can also occur due to severe vomiting or diarrhea. A mild case usually causes no symptoms. It is only found with blood testing. More severe potassium loss causes generalized weakness, muscle or abdominal cramping, heart palpitations (rapid or irregular heartbeats) and low blood pressure. Home Care: 1) Take any potassium supplements prescribed. 2) Eat foods rich in potassium. The highest amount is found in artichoke, baked potatoes, spinach, cantaloupe, honeydew melon, cod, halibut, salmon, and scallops. White, red, or burgos beans are also very good sources. A modest amount is found in orange juice, bananas, carrots, and tomato juice. 3) Certain types of diuretics (water pills), such as Lasix (furosemide), require that you take potassium supplements for as long as you take the diuretic pills. If you are taking a diuretic, discuss the need for potassium supplements with your doctor. Follow Up with your doctor for a repeat blood test within the next week or as advised by our staff. Get Prompt Medical Attention if any of the following occur: -- Increased weakness -- Feeling dizzy -- Irregular heartbeat, extra beats or very fast heart rate -- Fainting spell Hydrocodone Bitartrate, Acetaminophen Oral tablet What is this medicine? ACETAMINOPHEN; HYDROCODONE (a set a EDNA nadine fen; ki droe JHON done) is a pain reliever. It is used to treat mild to moderate pain. How should I use this medicine? Take this medicine by mouth. Swallow it with a full glass of water. Follow the directions on the prescription label. If the medicine upsets your stomach, take the medicine with food or milk. Do not take more than you are told to take. Talk to your interior decorator regarding the use of this medicine in children. This medicine is not approved for use in children. What side effects may I notice from receiving this medicine? Side effects that you should report to your doctor or health acute care registered nurse as soon as possible: allergic reactions like skin rash, itching or hives, swelling of the face, lips, or tongue breathing problems confusion feeling faint or lightheaded, falls stomach pain yellowing of the eyes or skin Side effects that usually do not require medical attention (report to your doctor or health acute care registered nurse if they continue or are bothersome): nausea, vomiting stomach upset What may interact with this medicine? alcohol antihistamines isoniazid medicines for depression, anxiety, or psychotic disturbances medicines for sleep muscle relaxants naltrexone narcotic medicines (opiates) for pain phenobarbital ritonavir tramadol What if I miss a dose? If you miss a dose, take it as soon as you can. If it is almost time for your next dose, take only that dose. Do not take double or extra doses. Where should I keep my medicine? Keep out of the reach of children. This medicine can be abused. Keep your medicine in a safe place to protect it from theft. Do not share this medicine with anyone. Selling or giving away this medicine is dangerous and against the law. Store at room temperature between 15 and 30 degrees C (59 and 86 degrees F). Protect from light. Keep container tightly closed. Throw away any unused medicine after the expiration date. Discard unused medicine and used packaging carefully. Pets and children can be harmed if they find used or lost packages. What should I tell my health care provider before I take this medicine? They need to know if you have any of these conditions: brain tumor Crohn's disease, inflammatory bowel disease, or ulcerative colitis drink more than 3 alcohol-containing drinks per day drug abuse or addiction head injury heart or circulation problems kidney disease or problems going to the bathroom liver disease lung disease, asthma, or breathing problems an unusual or allergic reaction to acetaminophen, hydrocodone, other opioid analgesics, other medicines, foods, dyes, or preservatives or trying to get breast-feeding What should I watch for while using this medicine? Tell your doctor or health acute care registered nurse if your pain does not go away, if it gets worse, or if you have new or a different type of pain. You may develop tolerance to the medicine. Tolerance means that you will need a higher dose of the medicine for pain relief. Tolerance is normal and is expected if you take the medicine for a long time. Do not suddenly stop taking your medicine because you may develop a severe reaction. Your body becomes used to the medicine. This does NOT mean you are addicted. Addiction is a behavior related to getting and using a drug for a non-medical reason. If you have pain, you have a medical reason to take pain medicine. Your doctor will tell you how much medicine to take. If your doctor wants you to stop the medicine, the dose will be slowly lowered over time to avoid any side effects. You may get drowsy or dizzy when you first start taking the medicine or change doses. Do not drive, use machinery, or do anything that may be dangerous until you know how the medicine affects you. Stand or sit up slowly. There are different types of narcotic medicines (opiates) for pain. If you take more than one type at the same time, you may have more side effects. Give your health care provider a list of all medicines you use. Your doctor will tell you how much medicine to take. Do not take more medicine than directed. Call emergency for help if you have problems breathing. The medicine will cause constipation. Try to have a bowel movement at least every 2 to 3 days. If you do not have a bowel movement for 3 days, call your doctor or health acute care registered nurse. Too much acetaminophen can be very dangerous. Do not take Tylenol (acetaminophen) or medicines that contain acetaminophen with this medicine. Many non-prescription medicines contain acetaminophen. Always read the labels carefully. Ondansetron Oral disintegrating tablet What is this medicine? ONDANSETRON (on JERRY se daniele) is used to treat nausea and vomiting caused by chemotherapy. It is also used to prevent or treat nausea and vomiting after surgery. How should I use this medicine? These tablets are made to dissolve in the mouth. Do not try to push the tablet through the foil backing. With dry hands, peel away the foil backing and gently remove the tablet. Place the tablet in the mouth and allow it to dissolve, then swallow. While you may take these tablets with water, it is not necessary to do so. Talk to your interior decorator regarding the use of this medicine in children. Special care may be needed. What side effects may I notice from receiving this medicine? Side effects that you should report to your doctor or health acute care registered nurse as soon as possible: allergic reactions like skin rash, itching or hives, swelling of the face, lips, or tongue breathing problems dizziness fast or irregular heartbeat feeling faint or lightheaded, falls fever and chills swelling of the hands and feet tightness in the chest Side effects that usually do not require medical attention (report to your doctor or health acute care registered nurse if they continue or are bothersome): constipation or diarrhea headache What may interact with this medicine? Do not take this medicine with any of the following medications: -apomorphine -cisapride -dofetilide -dronedarone -pimozide -thioridazine -ziprasidone This medicine may also interact with the following medications: -carbamazepine -phenytoin -rifampicin -tramadol -other medicines that prolong the QT interval (cause an abnormal heart rhythm) What if I miss a dose? If you miss a dose, take it as soon as you can. If it is almost time for your next dose, take only that dose. Do not take double or extra doses. Where should I keep my medicine? Keep out of the reach of children. Store between 2 and 30 degrees C (36 and 86 degrees F). Throw away any unused medicine after the expiration date. What should I tell my health care provider before I take this medicine? They need to know if you have any of these conditions: heart disease history of irregular heartbeat liver disease low levels of magnesium or potassium in the blood an unusual or allergic reaction to ondansetron, granisetron, other medicines, foods, dyes, or preservatives or trying to get breast-feeding What should I watch for while using this medicine? Check with your doctor or health acute care registered nurse as soon as you can if you have any sign of an allergic reaction. Ibuprofen Oral tablet What is this medicine? IBUPROFEN (eye BYOO proe fen) is a non-steroidal anti-inflammatory drug (NSAID). It is used for dental pain, fever, headaches or migraines, osteoarthritis, rheumatoid arthritis, or painful monthly periods. It can also relieve minor aches and pains caused by a cold, flu, or sore throat. How should I use this medicine? Take this medicine by mouth with a glass of water. Follow the directions on the prescription label. Take this medicine with food if your stomach gets upset. Try to not lie down for at least 10 minutes after you take the medicine. Take your medicine at regular intervals. Do not take your medicine more often than directed. A special MedGuide will be given to you by the pharmacist with each prescription and refill. Be sure to read this information carefully each time. Talk to your interior decorator regarding the use of this medicine in children. Special care may be needed. What side effects may I notice from receiving this medicine? Side effects that you should report to your doctor or health acute care registered nurse as soon as possible: allergic reactions like skin rash, itching or hives, swelling of the face, lips, or tongue black or bloody stools, blood in the urine or in vomit breathing problems changes in vision chest pain general ill feeling or flu-like symptoms nausea or vomiting redness, blistering, peeling or loosening of the skin, including inside the mouth slurred speech or weakness on one side of the body stomach pain unexplained weight gain or swelling unusually weak or tired yellowing of eyes or skin Side effects that usually do not require medical attention (report to your doctor or health acute care registered nurse if they continue or are bothersome): constipation or diarrhea dizziness gas or heartburn stomach upset What may interact with this medicine? Do not take this medicine with any of the following medications: cidofovir ketorolac methotrexate pemetrexed This medicine may also interact with the following medications: alcohol aspirin diuretics lithium other drugs for inflammation like prednisone warfarin What if I miss a dose? If you miss a dose, take it as soon as you can. If it is almost time for your next dose, take only that dose. Do not take double or extra doses. Where should I keep my medicine? Keep out of the reach of children. Store at room temperature between 15 and 30 degrees C (59 and 86 degrees F). Keep container tightly closed. Throw away any unused medicine after the expiration date. What should I tell my health care provider before I take this medicine? They need to know if you have any of these conditions: asthma cigarette smoker drink more than 3 alcohol containing drinks a day heart disease or circulation problems such as heart failure or leg edema (fluid retention) high blood pressure kidney disease liver disease stomach bleeding or ulcers an unusual or allergic reaction to ibuprofen, aspirin, other NSAIDS, other medicines, foods, dyes, or preservatives or trying to get breast-feeding What should I watch for while using this medicine? Tell your doctor or healthcare professional if your symptoms do not start to get better or if they get worse. This medicine does not prevent heart attack or stroke. In fact, this medicine may increase the chance of a heart attack or stroke. The chance may increase with longer use of this medicine and in people who have heart disease. If you take aspirin to prevent heart attack or stroke, talk with your doctor or health acute care registered nurse. Do not take other medicines that contain aspirin, ibuprofen, or naproxen with this medicine. Side effects such as stomach upset, nausea, or ulcers may be more likely to occur. Many medicines available without a prescription should not be taken with this medicine. This medicine can cause ulcers and bleeding in the stomach and intestines at any time during treatment. Ulcers and bleeding can happen without warning symptoms and can cause . To reduce your risk, do not smoke cigarettes or drink alcohol while you are taking this medicine. You may get drowsy or dizzy. Do not drive, use machinery, or do anything that needs mental alertness until you know how this medicine affects you. Do not stand or sit up quickly, especially if you are an older patient. This reduces the risk of dizzy or fainting spells. This medicine can cause you to bleed more easily. Try to avoid damage to your teeth and gums when you brush or floss your teeth. You have been given the following additional information: Kidney Stone W/ Colic Ovarian Cyst Hypokalemia Hydrocodone Bitartrate, Acetaminophen Oral tablet Ondansetron Oral disintegrating tablet Ibuprofen Oral tablet (Electronically signed by Duy Oconnell DO 04/16/2017 11:34)
== END 2017-04-15 07:20 | disposition home or self-care (01) ==
LOC: ED SRH 05:18
DX: N13.2 Hydronephrosis with renal and ureteral calculous obstruction (principal); N83.202 Unspecified ovarian cyst, left side; N83.201 Unspecified ovarian cyst, right side; E87.6 Hypokalemia; K76.89 Other specified diseases of liver
CPT/HCPCS: 90004; 90074; 90100; 90616; 91320; 92010; 92031; 92235; 92530; 92610; 92720; 94060; 95059